=== PATIENT | male | born 1955 | race Caucasian/White ===

== ENCOUNTER 2017-08-14 11:25 | Emergency (ER) | payer BC ==
[2017-08-14 11:46] VITALS: BP 138/84
--- NOTE | 2017-08-14 12:24 | UC ---
Throat Pain/Nasal Stevenson HPI - HPI Summary HPI Summary: Pt presents with B/l earache and sinus symptoms. He tells me that he was visiting family in [place] last week - began to feel sinus congestion while there, but on the plane ride home 4 days ago, had lots of ear popping and pain. He is currently being treated for multiple myeloma and spoke to his oncologist, whom recommended he be seen and prescribed an antibiotic. Denies fever, chills, cough, ST, SOB, chest pain, abdominal pain, N/v/d/C - History of Current Complaint Chief Complaint: UCGeneralIllness Stated Complaint: RESP Time Seen by Provider: 08/14/17 12:23 Hx Obtained From: Patient Onset/Duration: Gradual Onset Severity: Moderate Pain Intensity: 5 Pain Scale Used: 0-10 Numeric - Allergies/Home Medications Allergies/Adverse Reactions: Allergies Allergy/AdvReac Type Severity Reaction Status Date / Time No Known Allergies Allergy Verified 08/14/17 11:46 Home Medications: Home Medications Lenalidomide(NF) [Revlimid(NF)] 15 mg PO DAILY 08/14/17 [History Confirmed 08/14] ValACYclovir (*) [Valtrex 500 mg (*)] 500 mg PO DAILY 08/14/17 [History Confirmed 08/14/17] PMH/Surg Hx/FS Hx/Imm Hx Cancer History: Other Other Cancer History: Multiple Myeloma - Surgical History Surgical History: Yes Surgery Procedure, Year, and Place: appendectomy in 20's, tonsillectomy age 7 - Family History Known Family History: Positive: Unknown - Social History Lives: With Family Alcohol Use: Occasionally Alcohol Amount: beer one/week Substance Use Type: None Smoking Status (MU): Never Smoked Tobacco - Immunization History Most Recent Influenza Vaccination: last season Most Recent Tetanus Shot: unknown Most Recent Pneumonia Vaccination: none Review of Systems Constitutional: Negative Skin: Negative Eyes: Negative ENT: Ear Ache, Sinus Congestion, Sinus Pain/Tenderness Respiratory: Negative Cardiovascular: Negative Gastrointestinal: Negative All Other Systems Reviewed And Are Negative: Yes Physical Exam Triage Information Reviewed: Yes Appearance: Well-Appearing, No Pain Distress Vital Signs: Initial Vital Signs Temp 97.5 F 08/14/17 11:41 Pulse 96 08/14/17 11:41 Resp 16 08/14/17 11:41 BP 138/84 08/14/17 11:41 Pulse Ox 99 08/14/17 11:41 Vital Signs Reviewed: Yes Eyes: Positive: Conjunctiva Clear, Other: - PERRLA. Negative: Conjunctiva Inflamed, Discharge ENT: Positive: Hearing grossly normal, Pharynx normal, Nasal congestion, Nasal drainage, TM bulging - R>L, TM red - R>L, Sinus tenderness, Uvula midline. Negative: Pharyngeal erythema, Tonsillar swelling, Tonsillar exudate Neck: Positive: Supple, Nontender, No Lymphadenopathy Respiratory: Positive: Chest non-tender, Lungs clear, Normal breath sounds, No respiratory distress, No accessory muscle use Cardiovascular: Positive: RRR, No Murmur, Pulses Normal Neurological: Positive: Alert Psychological: Positive: Age Appropriate Behavior Skin: Negative: rashes Throat Pain/Nasal Course/Dx - Course Course Of Treatment: Sinusitis. Right ear otitis media - Differential Dx/Diagnosis Differential Diagnosis/HQI/PQRI: Influenza, Mononucleosis, Otitis Media, Sinusitis, Tonsillitis, URI Provider Diagnoses: Sinusitis. Otitis media right ear Discharge - Discharge Plan Condition: Stable Disposition: HOME Prescriptions: Amoxicillin/Clavulanate TAB* [Augmentin TAB 875*] 875 mg PO BID #20 tab Patient Education Materials: Sinusitis (ED) Referrals: Jacobo Adame MD [Primary Care Provider] - Additional Instructions: If you develop a fever, SOB, chest pain, new or worsening symptoms - please call your PCP or go to the ED. Your blood pressure was mildly elevated at todays visit. Please see your primary provider within 4 weeks for recheck and re-evaluation.
== END 2017-08-14 12:34 | disposition home or self-care (01) ==
LOC: UCEAST 11:25
DX: J32.9 Chronic sinusitis, unspecified (principal); H66.91 Otitis media, unspecified, right ear; C90.00 Multiple myeloma not having achieved remission
CPT/HCPCS: 99212; G0463

== ENCOUNTER → 2019-02-06 06:47 | Day surgery (SDC) | payer BC ==
--- NOTE | 2019-02-01 20:44 | HP ---
CC: Dr. Jacobo Adame; Dr. Arturo Hdez * ADMITTING HISTORY AND PHYSICAL: DATE OF ADMISSION: 02/06/19 ADMITTING DIAGNOSES: 1. Calculus, right proximal ureter. 2. Mild right hydronephrosis. PLANNED PROCEDURE: Shock wave lithotripsy of calculus, right ureter and right stent insertion. SURGEON: Dr. Vaughan. HISTORY OF PRESENT ILLNESS: Roge Andrade is a 64-year-old gentleman with a history of recurrent renal calculi. He has had episodic right flank pain for the last couple of months and had been in [place] and when he returned had imaging done, which revealed approximately 5 to 6 mm calculus in the proximal right ureter with right hydronephrosis. PAST MEDICAL HISTORY: Significant for: 1. Multiple myeloma. 2. History of recurrent renal calculi. 3. History of shingles. PAST SURGICAL HISTORY: Significant for prior ureteroscopy and stent in 2013 and also significant for stem cell transplant done for his multiple myeloma several years ago. MEDICATIONS ON ADMISSION: 1. Revlimid 5 mg daily. 2. Valacyclovir daily. 3. Super Beta Prostate 1 tablet daily. ALLERGIES: No known drug allergies. SMOKING HISTORY: He is a nonsmoker. FAMILY HISTORY: Negative for stones. REVIEW OF SYSTEMS: He is otherwise in excellent health. There is no history of diabetes mellitus or any other major systemic illness. He denies any chest pain or shortness of breath. PHYSICAL EXAMINATION GENERAL: Reveals a pleasant, middle-aged gentleman. VITAL SIGNS: Blood pressure is 112/72; pulse 82 per minute, regular; oxygen saturation 95% on room air; temperature 97.4. LUNGS: Clear bilaterally. CARDIOVASCULAR EXAM: Regular rate and rhythm. S1, S2. ABDOMEN: Soft with mild right flank tenderness. IMPRESSION: A 64-year-old gentleman with a 1 to 2 month history of episodic right flank pain secondary to partially obstructing calculus in the right proximal ureter. PLAN: Planned procedure is right stent insertion and shock wave lithotripsy of calculus, right ureter. [id number]/[facility] #: [id number] [facility]
[~2019-02-06 06:47] MED LIST: Buffered Lidocaine 1% SYRIN* 1 ML/SYRINGE INTRADERM ONE; Dexamethasone IV* 4 MG/ML 1 ML (4 MG) ONE; EPHEDrine (Pressors)* 50 MG/ML VIAL ONE; Famotidine IV* 10 MG/ML 2 ML (20 mg) IV ONE; Famotidine IV* 10 MG/ML 2 ML (20 mg) ONE; Furosemide IV* 10 MG/ML 2 ML VIAL (20 MG) ONE; Iohexol 180 (CONTRAST) 10 ML SDV IV ONE; Ketorolac INJ* 30 MG/ML 1 ML VIAL ONE; Lactated Ringers 1000 ML Bag* 1,000 ML IV SCH; Midazolam* 1 MG/ML 5 ML VIAL (5 MG) ONE; Naloxone* 0.4 MG/ML 1 ML VIAL IV PRN; Ondansetron INJ* 2 MG/ML VIAL IV PRN; Ondansetron INJ* 2 MG/ML VIAL ONE; Propofol* 10 MG/ML 20 ML BTL ONE; Tamsulosin CAP* 0.4 MG ONE; cefTRIAXone(*) 2 GM ADDV.VIAL IVPB ONE; fentaNYL* 50 MCG/ML 2 ML VIAL (100 MCG VIAL) IV PRN; fentaNYL* 50 MCG/ML 2 ML VIAL (100 MCG VIAL) ONE; oxyCODONE/Acetamin 5/325 MG* TAB ONE
[2019-02-06 13:22] VITALS: BP 157/88
--- NOTE | 2019-02-06 13:30 | OP ---
CC: Dr. Jacobo Adame * DATE OF OPERATION: 02/06/19 - [facility] DATE OF : 59 SURGEON: Dr. Vaughan. ANESTHESIOLOGIST: Dr. Salas. ANESTHESIA: General. PRE-OP DIAGNOSES: 1. Right hydronephrosis. 2. Calculus, right proximal ureter. POST-OP DIAGNOSES: 1. Right hydronephrosis. 2. Calculus, right proximal ureter. OPERATIVE PROCEDURE: 1. Shockwave lithotripsy of calculus, right ureter. 2. Cystoscopy, right retrograde and right stent insertion. COMPLICATIONS: None. STENT USED: A 6-Afghan stent, right ureter. INDICATIONS: Roge Andrade is a 64-year-old gentleman who was evaluated for right flank pain, which he has had off and on for the last couple of months. He was noted to have a persistent calculus in the right proximal ureter and is now being brought in for an attempt at shockwave lithotripsy and stent insertion. OPERATIVE FINDINGS: Complete obstruction right ureter secondary to approximately 6- mm calculus impacted in right proximal ureter causing right hydronephrosis and proximal hydroureter. DESCRIPTION OF PROCEDURE: After induction of general anesthesia, the patient was placed on the lithotripsy table in supine position. The calculus which was in the proximal right ureter was visualized using fluoroscopy. Shockwave lithotripsy was commenced at a rate of 60 shocks per minute. Periodic imaging with fluoroscopy was used to confirm accurate localization and a total of 3000 shocks were administered. Next, the patient was placed in dorsal lithotomy position and cystoscopy was performed. The urethra was normal. The prostate was mild to moderately enlarged and the bladder was normal. Clear efflux of urine was noted from the left orifice. There was no efflux noted from the right orifice suggesting a complete obstruction. Right retrograde pyelogram initially revealed no proximal progression of contrast above the level of the calculus. Initial attempts at using the regular guidewire to advance beyond the calculus were unsuccessful, so I used a hydrophilic Glidewire as the calculus appeared to be impacted. With the Glidewire, I was able to get by beyond the point of obstruction and then advanced an open-ended catheter and confirmation of appropriate positioning was made on fluoroscopy. A 6-Afghan stent was introduced and positioned under fluoroscopy with good proximal and distal positioning obtained. My plan is to obtain a postoperative x-ray to see if there is any delayed effect of fragmentation noted and if not, it is possible that he may require a ureteroscopy with laser lithotripsy in an effort to break up this fairly hard impacted calculus. The patient tolerated the procedure satisfactorily and was transferred back to the recovery area in stable condition. [id number]/[facility] #: [id number] [facility]
== END | disposition home or self-care (01) ==
LOC: OR 06:47
PROVIDERS: ATTEND Urology
DX: N13.2 Hydronephrosis with renal and ureteral calculous obstruction (principal); Z85.79 Personal history of other malignant neoplasms of lymphoid, hematopoietic and related tissues; Z87.442 Personal history of urinary calculi
CPT/HCPCS: 74018; A9270-GY; C1876; J0696; J1100; J1885; J1940; J2250; J2405; J2704; J3010

== ENCOUNTER → 2019-02-20 08:58 | Day surgery (SDC) | payer BC ==
[~2019-02-20 08:58] MED LIST changes: +Dexamethasone IV* 4 MG/ML 1 ML (4 MG) IV SLOW PU SCH; -Dexamethasone IV* 4 MG/ML 1 ML (4 MG) ONE; +DiMENhydriNATE IV* 50 MG/ML VIAL IV PUSH PRN; -EPHEDrine (Pressors)* 50 MG/ML VIAL ONE; -Famotidine IV* 10 MG/ML 2 ML (20 mg) IV ONE; -Famotidine IV* 10 MG/ML 2 ML (20 mg) ONE; +Furosemide IV* 10 MG/ML 2 ML VIAL (20 MG) IV SCH; -Furosemide IV* 10 MG/ML 2 ML VIAL (20 MG) ONE; +Gentamicin ADULT (*) 160 MG in NS 0.9% 100 ML* 100 ML IVPB ONE; -Ketorolac INJ* 30 MG/ML 1 ML VIAL ONE; -Lactated Ringers 1000 ML Bag* 1,000 ML IV SCH; +Lidocaine 2% PF * 5 ML VIAL INJ SCH; -Midazolam* 1 MG/ML 5 ML VIAL (5 MG) ONE; -Ondansetron INJ* 2 MG/ML VIAL IV PRN; +Ondansetron INJ* 2 MG/ML VIAL IV SCH; -Ondansetron INJ* 2 MG/ML VIAL ONE; +Propofol* 10 MG/ML 20 ML BTL IV SCH; -Propofol* 10 MG/ML 20 ML BTL ONE; -Tamsulosin CAP* 0.4 MG ONE; +oxyCODONE/Acetamin 5/325 MG* TAB PO SCH
[2019-02-20 16:05] VITALS: BP 136/87
--- NOTE | 2019-02-20 23:19 | OP ---
CC: Dr. Adame; Dr. Vaughan * DATE OF OPERATION: 02/20/19 - [facility] DATE OF : 59 SURGEON: Dr. Vaughan. ANESTHESIOLOGIST: Dr. Moon. ANESTHESIA: General. PRE-OP DIAGNOSIS: Right ureteral calculus and right hydronephrosis. POST-OP DIAGNOSIS: Right ureteral calculus and right hydronephrosis. OPERATIVE PROCEDURE: Cystoscopy, right stent removal, right retrograde pyelogram, right ureteroscopy and laser lithotripsy of right ureteral calculus and removal of calculus fragment, and right stent insertion. COMPLICATIONS: None. STENT USED: A 7-Greenlandic stent, right ureter. OPERATIVE FINDINGS: Approximately 7 to 8 mm calculus impacted in right proximal ureter with surrounding edema and inflammation. POSTOPERATIVE CONDITION: Stable. INDICATIONS: Roge Andrade is a 64-year-old gentleman who has had several month history of right flank pain going back to the time when he was in [place]. He was evaluated here and was noted to have a calculus in the right proximal ureter which initially was treated with shockwave lithotripsy and right stent insertion. I did not see any significant fragmentation after the shockwave lithotripsy and he is now being brought in for ureteroscopy with laser lithotripsy. DESCRIPTION OF PROCEDURE: After induction of general anesthesia, the patient was placed in dorsal lithotomy position. Sequential compression devices were in place and functioning. Initial cystoscopy revealed a normal appearing urethra , a mild to moderately large prostate, and a normal appearing bladder. The previously placed stent was seen exiting from the right orifice and was removed intact without difficulty. Retrograde pyelogram revealed fullness of the right collecting system. A 6-Greenlandic semi-rigid ureteroscope was introduced and advanced under direct vision. In the proximal right ureter, sharp edge 6 to 7 mm calculus was noted to be impacted with surrounding edema and inflammation. This was carefully dislodged and using a 550 micron Holmium laser was fragmented into multiple pieces. All of the sizeable pieces that could be visualized were retrieved. At the end of the procedure, I could not visualize any piece bigger than 1 or 2 mm in size and there was no evidence of any injury to the ureter. A repeat retrograde pyelogram was performed to make sure there was no extravasation and none was noted, and a 7-Greenlandic stent was introduced and positioned under fluoroscopy with good proximal and distal positioning obtained. My concern is because of the degree of the edema and inflammation and the fact that the stone had likely been in this position for month, he is at higher risk for stricture of the ureter and I would like to leave the stent in postoperatively at least for 2 to 3 weeks to minimize that risk. The patient tolerated the procedure satisfactorily and was transferred back to recovery area in stable condition. [id number]/[facility] #: [id number] [facility]
== END | disposition home or self-care (01) ==
LOC: SDS 08:58
PROVIDERS: ATTEND Urology
DX: N13.2 Hydronephrosis with renal and ureteral calculous obstruction (principal); Z85.79 Personal history of other malignant neoplasms of lymphoid, hematopoietic and related tissues; Z87.442 Personal history of urinary calculi
CPT/HCPCS: 74018; 82365; 88300; A9270-GY; C1876; J0696; J1100; J1580; J1940; J2405; J2704; J3010